=== PATIENT | female | born 1995 | race Caucasian/White ===

== ENCOUNTER 2021-03-13 22:44 | Emergency (ER) | payer OTHER, SELFPAY ==
[2021-03-13 22:45] VITALS: BP 131/83; PULSE 109; RESP 22; TEMP 37.6; O2SAT 99; BMI 25.3
[2021-03-13 23:18] LABS: Microscopic, Urine URINE MICROSCOPIC (MICROSCOPIC)
[2021-03-13 23:22] LABS: Appearance,Urine CLOUDY (Clear); Bilirubin,Urine Negative (Negative); Blood, Urine 1+ (Negative); Chloride 99 mmol/L (98-107); Color,Urine YELLOW (Yellow); Glucose,Urine (UA) 3+ (Negative); Ketones,Urine TRACE (Negative); Leukocyte Esterase,Urine Negative (Negative); Nitrate,Urine POSITIVE (Negative); Potassium 3.9 mmoL/L (3.5-5.1); Protein,Urine Negative (Negative); Sodium 136 mmol/L (136-145); Specific Gravity, Urine 1.015 (1.005-1.030); Urobilinogen,Urine 0.2 EU/dl (0.2)
[2021-03-13 23:23] LABS: Basophils # 0.1 K/mm3 (0-0.2); Basophils % 0.3 % (0.1-2.0); Eosinophils # 0.1 K/mm3 (0.0-0.4); Eosinophils % 0.3 % (0.1-12.0); Hematocrit 42.3 % (37.0-47.0); Hemoglobin 14.3 g/dL (12.2-16.2); Lymphocytes # 1.5 K/mm3 (0.7-4.5); Lymphocytes % 9.2 % (10-50); Mean Corpuscular HGB Conc 33.9 g/dL (31.8-35.4); Mean Corpuscular Volume 94.5 fl (81-99); Mean Platelet Volume 8.4 fl (7.4-10.4); Monocytes # 0.6 K/mm3 (0.1-1.0); Monocytes % 3.5 % (1.7-9.3); Neutrophils % 86.7 % (37.0-80.0); Platelet Count 437 K/mm3 (142-424); Red Blood Count 4.47 M/mm3 (4.20-5.40); Red Cell Distribution Width 12.8 % (11.5-17.5); White Blood Count 16.2 K/mm3 (4.8-10.8)
[2021-03-13 23:24] LABS: Amylase 92 U/L (30-110)
[2021-03-13 23:25] LABS: Alanine Aminotransferase 35 U/L (12-78); Albumin Level 4.6 g/dl (3.5-5.0); Albumin/Globulin Ratio 1.4 (1.1-1.8); Alkaline Phosphatase 139 U/L (38-126); Anion Gap 17.9 mEq/L (5-15); Aspartate Amino Transferase 38 U/L (14-36); Bilirubin,Total 0.5 mg/dl (0.2-1.3); Blood Urea Nitrogen 11 mg/dl (7-17); Calcium 9.6 mg/dl (8.4-10.2); Carbon Dioxide 23 mmol/L (22.0-30.0); Creatinine Clearance Estimated 79 mL/min (50-200); Estimated Glomerular Filt Rate 86 ml/min (>60); GFR (African American) 104 ML/MIN (>60); Globulin 3.4 g/dL (1.3-3.2); Glucose 260 mg/dl (74-100); Lipase 50 U/L (23-300); Urine Pregnancy, HCG Qual. Negative (Negative)
[2021-03-13 23:26] LABS: MANUAL DIFFERENTIAL MANUAL DIFFERENTIAL (MANUAL DIFF)
[2021-03-13 23:33] LABS: Acetone, Serum (Rapid) None Detected (None Detect)
[2021-03-13 23:34] LABS: Bacteria,Urine 3+ /lpf; WBC,Urine 20-50 #/hpf (0-3)
[2021-03-13 23:42] LABS: C-Reactive Protein 44.5 mg/L (0-4)
[2021-03-13 23:44] LABS: Lymphocytes % 9 % (10-50); Monocytes % 8 % (2-9); Neutrophils % 83 % (42-76); Platelet Estimate Normal; RBC Morphology Normal; Total Cells Counted 100
--- NOTE | 2021-03-13 23:53 | [facility].EDNVD ---
ED Disposition Clinical Impression: Diabetes mellitus, insulin dependent (IDDM), controlled UTI (urinary tract infection) Qualifiers: Urinary tract infection type: site unspecified Hematuria presence: without hematuria Qualified Code(s): N39.0 - Urinary tract infection, site not specified Disposition: Home, Self-Care Condition on Discharge: Good Instructions: DI for Urinary Tract Infection (UTI) Additional Instructions: fluids and see pcp for follow up Referrals: Provider,Referral, MD [Primary Care Provider] - - Critical Care Critical Care Time: No Attestation: On 03/13/21, the high probability of a clinically significant, sudden or life threatening deterioration of the following system(s) required my full and direct attention, intervention and personal management. The time I documented below is in addition to time spent performing reported procedures but includes the following listed in this critical care notation. Medical Decision Making - Medical Records Medical records reviewed: Yes: I reviewed the patient's medical records. - [place] Inquiry Pt receiving controlled substance: No Vital Signs: 03/13/21 22:45 Temperature 99.7 F H Temperature Source Oral Pulse Rate [Apical] 109 H Respiratory Rate 22 Blood Pressure [Right Arm] 131/83 Blood Pressure Mean [Right Arm] 99 Blood Pressure Source [Right Arm] Automatic Cuff Blood Pressure Position [Right Arm] Sitting 02 Sat by Pulse Oximetry 99 Oxygen Delivery Method Room Air - Lab Data Lab results reviewed: Yes: I reviewed the patient's lab results. Lab Results 03/13/21 23:03: Urine Color Yellow, Urine Appearance Cloudy, Urine pH 6.0, Ur Specific [place] 1.015, Urine Protein Negative, Urine Glucose (UA) 3+, Urine Ketones Trace, Urine Blood 1+, Urine Nitrate Positive, Urine Bilirubin Negative, Urine Urobilinogen 0.2, Ur Leukocyte Esterase Negative, Urine RBC 5-10, Urine WBC 20-50, Ur Squamous Epith Cells 10-20, Urine Bacteria 3+ 03/13/21 23:03: WBC 16.2 H, RBC 4.47, Hgb 14.3, Hct 42.3, MCV 94.5, MCH 32.0 H, MCHC 33.9, RDW 12.8, Plt Count 437 H, MPV 8.4, Neut % (Auto) 86.7 H, Lymph % (Auto) 9.2 L, [place] % (Auto) 3.5, Eos % (Auto) 0.3, Baso % (Auto) 0.3, Neut # (Auto) 14.0 H, Lymph # (Auto) 1.5, [place] # (Auto) 0.6, Eos # (Auto) 0.1, Baso # (Auto) 0.1, Total Counted 100, Neutrophils % (Manual) 83 H, Lymphocytes % (Manual) 9 L, Monocytes % (Manual) 8, Platelet Estimate Normal, RBC Morphology Normal 03/13/21 23:03: Urine HCG, Qual Negative 03/13/21 23:03: Sodium 136, Potassium 3.9, Chloride 99, Carbon Dioxide 23, Anion Gap 17.9 H, BUN 11, Creatinine 0.80, Estimated Creat Clear 79, Estimated GFR 86, Est GFR ( Amer) 104, Glucose 260 H, Calcium 9.6, Total Bilirubin 0.5, AST 38 H, ALT 35, Alkaline Phosphatase 139 H, C-Reactive Protein 44.5 H, Total Protein 8.0, Albumin 4.6, Globulin 3.4 H, Albumin/Globulin Ratio 1.4, Amylase 92, Lipase 50, Acetone Level None detected Result diagrams: 03/13/21 23:03 03/13/21 23:03 Orders (Tests/Meds): ED MEDICATIONS Generic Name Dose Route Start Last Admin Trade Name Freq PRN Reason Stop Dose Admin Sodium Chloride 1,000 mls @ 999 mls/hr 03/13/21 23:15 Sod Chlor 0.9% 1000ml Bag IV 03/14/21 00:15 .[id number] GOMEZ Discontinued Medications Generic Name Dose Route Start Last Admin Trade Name Freq PRN Reason Stop Dose Admin Ketorolac Tromethamine 30 mg 03/13/21 23:17 03/13/21 23:42 Ketorolac 30mg/Ml Vial IV 03/13/21 23:18 30 mg ONCE ONE Administration Ondansetron HCl 4 mg 03/13/21 23:17 03/13/21 23:42 Ondansetron 4mg/2ml Vial IV 03/13/21 23:18 4 mg ONCE ONE Administration ORDERS Category Date Time Status Complete Blood Count Auto Diff Stat Lab 03/13/21 23:03 Results Erythrocyte Sedimentation Rate Stat Lab 03/13/21 23:03 Results Procalcitonin Stat Lab 03/13/21 23:03 Received Urine Culture Stat Micro 11/17/21 23:03 Received Medical Decision Narrative: diabetic with uti
[2021-03-13 23:54] LABS: Erythrocyte Sedimentation Rate 33 mm/hr (0-20)
[2021-03-13 23:58] VITALS: BP 115/78; PULSE 78; RESP 18; TEMP 36.9; O2SAT 99
[2021-03-14 01:09] LABS: Procalcitonin 0.191 ng/mL (0.0-2.0)
== END 2021-03-14 00:05 | disposition home or self-care (01) ==
PROVIDERS: Emergency Provider Emergency Medicine
DX: N30.01 Acute cystitis with hematuria (principal); E11.65 Type 2 diabetes mellitus with hyperglycemia; Z79.4 Long term (current) use of insulin
CPT/HCPCS: 80053; 81001; 81025; 82009; 82150; 83690; 84145; 85007; 85025; 85651; 86140; 87086; 87088; 87186; 96365; 96367; 99283; J2405